=== PATIENT | male | born 1985 | race Two or more races ===

== ENCOUNTER 2018-05-08 20:34 | Emergency (ER) | payer OTHER ==
[~2018-05-08] VITALS: Ht 177.8 cm; Wt 117.9 kg
--- NOTE | 2018-05-08 20:57 | NUR ---
Patient discharged to home in stable conditon. Written and verbal after care instructions given. Patient verbalizes understanding of instructions. Ambulated from ER with stable gait. All belongings with patient.
[2018-05-08 20:59] VITALS: BP 137/97
== END 2018-05-08 21:00 | disposition home or self-care (01) ==
LOC: ER 20:34
DX: J20.9 Acute bronchitis, unspecified (principal); J02.9 Acute pharyngitis, unspecified
CPT/HCPCS: A4663